=== PATIENT | female | born 1975 | race Caucasian/White ===

== ENCOUNTER 2016-05-23 20:22 | Emergency (ER) | payer OTHER ==
--- NOTE | 2016-05-23 21:05 | RAD ---
Exam: Three-view right elbow COMPARISON: None INDICATION: Fell twice within the last week injuring right elbow. Pain and swelling. FINDINGS: AP, lateral and oblique views of the right elbow were obtained. Mild soft tissue swelling is seen along the dorsal aspect of the proximal ulna as well as medially. No joint effusion is identified. Alignment is maintained. No fracture is identified. Joint spaces preserved. IMPRESSION: No acute osseous abnormality in the right elbow.
--- NOTE | 2016-05-24 07:40 | RAD ---
Exam: Three-view lumbar spine COMPARISON: None INDICATION: Low back pain from fall one week ago and again today. FINDINGS: AP, lateral and AP angled views lumbar spine were obtained. There are 5 nonrib-bearing lumbar vertebra. There is anatomic sagittal alignment. Overall vertebral body height and disc spaces maintained. Sacroiliac joints are within normal limits and symmetric. Sacral foramen are intact. Cholecystectomy clips are noted. IMPRESSION: Negative radiographic evaluation of the lumbar spine.
== END 2016-05-23 21:52 | disposition home or self-care (01) ==
LOC: ED 20:22
DX: M25.521 Pain in right elbow (principal); M54.5 Low back pain; W01.198A Fall on same level from slipping, tripping and stumbling with subsequent striking against other object, initial encounter; Y93.E5 Activity, floor mopping and cleaning; Y92.000 Kitchen of unspecified non-institutional (private) residence as the place of occurrence of the external cause